=== PATIENT | male | born 1970 | race African-American/Black ===

== ENCOUNTER 2018-11-27 15:32 | Inpatient (IN) | payer MEDICAID ==
[~2018-11-27] VITALS: Ht 172.7 cm; Wt 80.3 kg
[2018-11-27 16:24] LABS: CHLORIDE 107 mEq/L (98-107)
[2018-11-27 16:24] LABS: BG BASE EXCESS -3.1 mmol/L (-2.0-2.0); BG CARBOXYHEMOGLOBIN 1.4 % (0.5-1.5); BG DEOXYHEMOGLOBIN 5.5 % (0.0-5.0); BG FRACTION INSPIRED OXYGEN 21; BG HCO3 ACT 19.7 mmol/L (22.0-26.0); BG METHEMOGLOBIN 0.1 % (0.0-1.5); BG OXYGEN SATURATION 94.4 % (92.0-98.5); BG PCO2 29.4 mmHg (35.0-45.0); BG PH 7.443 (7.350-7.450); BG PO2 68.9 mmHg (75.0-100.0); BG SAMPLE SITE RIGHT RADIAL; BG TOTAL HEMOGLOBIN 14.3 g/dL (12.0-18.0); BG VENT MODE ROOM AIR
[2018-11-27] MEDS ORDERED: SODIUM CHLORIDE 0.9% 1,000 ML IV ONE (16:26)
[2018-11-27 16:27] LABS: BASOPHILS % 0.3 % (0.0-2.0); EOSINOPHILS % 0.1 % (0.0-5.0); HEMATOCRIT. 41.2 % (42.0-52.0); HEMOGLOBIN. 14.1 g/dL (14.0-18.0); LYMPHOCYTES % 8.7 % (20.0-50.0); MEAN CORPUSCULAR HEMOGLOBIN 31.1 pg (28.0-32.0); MEAN CORPUSCULAR VOLUME 90.9 fL (80.0-94.0); NEUTROPHILS % 82.9 % (40.0-76.0); PLATELET 120 x1000/uL (130-400); RED BLOOD CELL COUNT 4.54 mill/uL (4.7-6.1); RED CELL DISTRIBUTION WIDTH 13.6 % (11.6-14.6)
[2018-11-27 16:37] LABS: D-DIMER 13.84 mg/L FEU (<0.50); INR 1.1; PARTIAL THROMBOPLASTIN TIME 27.8 sec (23.4-31.0); PROTHROMBIN TIME 11.1 sec (9.6-11.0)
[2018-11-27 17:15] LABS: ETHANOL BLOOD < 10 mg/dL
[2018-11-27] MEDS ORDERED: IOHEXOL-350 100 ML BOTTLE ONE (17:28)
[2018-11-27 17:30] LABS: CREATINE KINASE 93 IU/L (39-308)
[2018-11-27] MEDS ORDERED: ENOXAPARIN 80MG/0.8ML SYR SUBCUT ONE (17:45)
[2018-11-27] MEDS ORDERED: HYDRALAZINE 20MG/ML VIAL IV ONE (18:15)
[2018-11-27 20:21] LABS: CLARITY URINE CLEAR (CLEAR); COLOR URINE YELLOW (YELLOW); KETONES URINE 1+ (NEGATIVE); LEUKOCYTE ESTERASE URINE NEGATIVE (NEGATIVE); NITRITE URINE NEGATIVE (NEGATIVE); OCCULT BLOOD URINE NEGATIVE (NEGATIVE); PROTEIN URINE NEGATIVE (NEGATIVE); SPECIFIC GRAVITY URINE 1.067 (1.005-1.030)
[2018-11-27 20:33] LABS: *AMPHETAMINES SCREEN URINE NEGATIVE (NEGATIVE); *BARBITURATES SCREEN URINE NEGATIVE (NEGATIVE); *BENZODIAZEPINES SCREEN URINE NEGATIVE (NEGATIVE); *COCAINE SCREEN URINE NEGATIVE (NEGATIVE)
[2018-11-27 20:34] LABS: CANNABINOID URINE SCREEN NEGATIVE (NEGATIVE); METHADONE URINE SCREEN NEGATIVE (NEGATIVE); OPIATES URINE SCREEN NEGATIVE (NEGATIVE); PHENCYCLIDINE URINE SCREEN NEGATIVE (NEGATIVE)
[2018-11-27] MEDS ORDERED: IPRATROPIUM/ALBUTEROL 0.5-3(2.5)MG/3ML NEB INH PRN (21:00)
[2018-11-27] MEDS ORDERED: DEXTROSE 50% WATER 50ML SYRINGE IV PRN (21:00)
[2018-11-27] MEDS ORDERED: HYDROCODONE/ACETAMINOPHEN 10/325MG TABLET PO PRN (21:00)
[2018-11-27] MEDS ORDERED: ONDANSETRON HCL 4MG/2ML INJ IV PRN (21:00)
[2018-11-27] MEDS ORDERED: CLONIDINE 0.1MG TABLET PO PRN (21:00)
[2018-11-27] MEDS ORDERED: MORPHINE SULFATE 2 MG/ML CPJ (NOT FOR IM USE) IV PRN (21:00)
[2018-11-27] MEDS ORDERED: GUAIFENESIN 200MG/10ML SUGAR FREE UDC PO PRN (21:00)
[2018-11-27] MEDS ORDERED: DOCUSATE SODIUM 100MG CAPSULE PO PRN (21:00)
[2018-11-27] MEDS ORDERED: LORAZEPAM 2MG/ML CPJ IV PRN (21:00)
[2018-11-27] MEDS ORDERED: MAGNESIUM/ALUMINUM HYDROXIDE/SIMETHICONE 30ML UDC PO PRN (21:00)
[2018-11-27] MEDS ORDERED: HYDRALAZINE 20MG/ML VIAL IV PRN (21:00)
[2018-11-27] MEDS ORDERED: ACETAMINOPHEN 325MG TABLET PO PRN (21:00)
[2018-11-27] MEDS ORDERED: NA PHOS,M-B/NA PHOS,DI-BA ENEMA 118ML PR PRN (21:00)
[2018-11-27] MEDS ORDERED: DIPHENHYDRAMINE 50MG/ML VIAL IV PRN (21:00)
[2018-11-27 22:36] VITALS: BP 127/81
[2018-11-27 22:44] VITALS: BP 127/81
[2018-11-28] VITALS (21 sets, daily range): BP systolic 110–140; BP diastolic 62–81
[2018-11-28 00:53] LABS: CREATINE KINASE 58 IU/L (39-308)
[2018-11-28 00:54] LABS: CREATINE KINASE MB FRACTION < 1.0 ng/mL (0.5-3.6)
[2018-11-28] MEDS: ENOXAPARIN 80MG/0.8ML SYR SUBCUT SCH ×2 (06:06→17:36)
[2018-11-28] MEDS: SODIUM CHLORIDE 0.9% INJ 3ML FLUSH IVF SCH ×3 (06:07→22:46)
[2018-11-28] MEDS: BLOOD SUGAR DIAGNOSTIC STRIP TEST SCH ×4 (06:07→21:25)
[2018-11-28 06:31] LABS: BASOPHILS % 0.4 % (0.0-2.0); EOSINOPHILS % 0.7 % (0.0-5.0); HEMATOCRIT. 37.4 % (42.0-52.0); HEMOGLOBIN. 12.5 g/dL (14.0-18.0); LYMPHOCYTES % 23.5 % (20.0-50.0); MEAN CORPUSCULAR HEMOGLOBIN 30.8 pg (28.0-32.0); MEAN CORPUSCULAR VOLUME 91.9 fL (80.0-94.0); MEAN PLATELET VOLUME 9.2 fl (7.4-10.4); MONOCYTES % 9.4 % (2.0-8.0); PLATELET 108 x1000/uL (130-400); RED BLOOD CELL COUNT 4.07 mill/uL (4.7-6.1); RED CELL DISTRIBUTION WIDTH 14.1 % (11.6-14.6)
[2018-11-28 06:33] LABS: CHLORIDE 111 mEq/L (98-107)
[2018-11-28 06:43] LABS: LDL CHOLESTEROL 46 mg/dL (5-100)
[2018-11-28 06:44] LABS: HDL CHOLESTEROL 42 mg/dL (40-59)
[2018-11-28 06:45] LABS: CREATINE KINASE 50 IU/L (39-308)
[2018-11-28 06:49] LABS: CREATINE KINASE MB FRACTION < 1.0 ng/mL (0.5-3.6)
[2018-11-28] MEDS ORDERED: ASPIRIN 81MG EC TABLET PO SCH (09:00)
[2018-11-28] MEDS: INSULIN LISPRO 100 UNITS/ML SUBCUT SCH ×4 (09:08→21:24)
[2018-11-28 09:40] LABS: T4 FREE 1.22 ng/dL (0.76-1.46)
[2018-11-28 12:33] LABS: INR 1.1; PARTIAL THROMBOPLASTIN TIME 36.8 sec (23.4-31.0); PROTHROMBIN TIME 11.5 sec (9.6-11.0)
[2018-11-28 12:52] LABS: D-DIMER 2.9 mg/L FEU (<0.50)
[2018-11-28] MEDS: LISINOPRIL 5MG TABLET PO SCH (13:35)
[2018-11-28] MEDS: HALOPERIDOL 5MG TABLET PO SCH ×2 (13:35→21:24)
[2018-11-28] MEDS ORDERED: INSU100I28 SQ (17:06)
[2018-11-28] MEDS ORDERED: BENZ1TAB7 MT (17:10)
[2018-11-28] MEDS ORDERED: HAL5 MT ×2 (17:15→17:16)
[2018-11-28 17:16] LABS: CREATINE KINASE 52 IU/L (39-308)
[2018-11-28] MEDS ORDERED: LISI-186 MT (17:17)
[2018-11-28 17:18] LABS: CREATINE KINASE MB FRACTION < 1.0 ng/mL (0.5-3.6)
[2018-11-28] MEDS: BENZTROPINE MESYLATE 2MG TABLET PO SCH (21:00)
[2018-11-28 23:29] LABS: CREATINE KINASE 43 IU/L (39-308)
[2018-11-28 23:30] LABS: CREATINE KINASE MB FRACTION < 1.0 ng/mL (0.5-3.6)
[2018-11-29] VITALS (24 sets, daily range): BP systolic 104–158; BP diastolic 66–130
[2018-11-29] MEDS: ENOXAPARIN 80MG/0.8ML SYR SUBCUT SCH (05:26)
[2018-11-29] MEDS: SODIUM CHLORIDE 0.9% INJ 3ML FLUSH IVF SCH ×3 (05:27→21:24)
[2018-11-29 05:53] LABS: CHLORIDE 108 mEq/L (98-107)
[2018-11-29 06:02] LABS: BASOPHILS % 0.4 % (0.0-2.0); CREATINE KINASE 38 IU/L (39-308); EOSINOPHILS % 1.6 % (0.0-5.0); HEMATOCRIT. 37.1 % (42.0-52.0); HEMOGLOBIN. 12.5 g/dL (14.0-18.0); LYMPHOCYTES % 29.6 % (20.0-50.0); MEAN CORPUSCULAR HEMOGLOBIN 30.8 pg (28.0-32.0); MEAN CORPUSCULAR VOLUME 91.5 fL (80.0-94.0); MEAN PLATELET VOLUME 9.1 fl (7.4-10.4); MONOCYTES % 10.2 % (2.0-8.0); NEUTROPHILS % 58.2 % (40.0-76.0); PLATELET 121 x1000/uL (130-400); RED BLOOD CELL COUNT 4.06 mill/uL (4.7-6.1); RED CELL DISTRIBUTION WIDTH 13.8 % (11.6-14.6)
[2018-11-29 06:04] LABS: CREATINE KINASE MB FRACTION < 1.0 ng/mL (0.5-3.6)
[2018-11-29] MEDS: BLOOD SUGAR DIAGNOSTIC STRIP TEST SCH ×4 (06:51→21:24)
[2018-11-29] MEDS: INSULIN LISPRO 100 UNITS/ML SUBCUT SCH ×4 (07:44→21:24)
[2018-11-29] MEDS: LISINOPRIL 5MG TABLET PO SCH (07:46)
[2018-11-29] MEDS: HALOPERIDOL 5MG TABLET PO SCH ×2 (07:46→21:23)
[2018-11-29] MEDS: APIXABAN 5 MG TABLET PO SCH (18:12)
[2018-11-29] MEDS: BENZTROPINE MESYLATE 2MG TABLET PO SCH (21:00)
[2018-11-30] VITALS (10 sets, daily range): BP systolic 110–129; BP diastolic 59–79
[2018-11-30] MEDS: SODIUM CHLORIDE 0.9% INJ 3ML FLUSH IVF SCH ×2 (06:39→14:00)
[2018-11-30] MEDS: BLOOD SUGAR DIAGNOSTIC STRIP TEST SCH ×2 (06:39→11:50)
[2018-11-30 07:19] LABS: BASOPHILS % 0.5 % (0.0-2.0); CHLORIDE 106 mEq/L (98-107); EOSINOPHILS % 2.6 % (0.0-5.0); HEMATOCRIT. 38.5 % (42.0-52.0); HEMOGLOBIN. 12.9 g/dL (14.0-18.0); LYMPHOCYTES % 33.8 % (20.0-50.0); MEAN CORPUSCULAR HEMOGLOBIN 30.6 pg (28.0-32.0); MEAN CORPUSCULAR VOLUME 91.6 fL (80.0-94.0); MEAN PLATELET VOLUME 8.9 fl (7.4-10.4); MONOCYTES % 9.6 % (2.0-8.0); NEUTROPHILS % 53.5 % (40.0-76.0); PLATELET 128 x1000/uL (130-400); RED CELL DISTRIBUTION WIDTH 13.7 % (11.6-14.6)
[2018-11-30] MEDS: INSULIN LISPRO 100 UNITS/ML SUBCUT SCH ×3 (07:20→11:50)
[2018-11-30] MEDS: HALOPERIDOL 5MG TABLET PO SCH (08:06)
[2018-11-30] MEDS: APIXABAN 5 MG TABLET PO SCH (08:06)
[2018-11-30] MEDS: LISINOPRIL 5MG TABLET PO SCH (08:06)
[2018-11-30] MEDS ORDERED: BENZONATATE 100MG CAPSULE PO PRN (14:45)
[2018-12-06] MEDS ORDERED: APIXABAN 5 MG TABLET PO SCH (17:00)
== END 2018-11-30 17:31 | disposition home or self-care (01) | DRG 134 ==
LOC: ER 15:32 → 3WST 18:19 → EDBEDREQ 18:36 → EDBEDREQSVC 18:36 → ENRESERV 21:24 → 3WST 22:27
PROVIDERS: ADMIT Internal Medicine; ATTEND Internal Medicine
DX: I26.99 Other pulmonary embolism without acute cor pulmonale (principal); J96.00 Acute respiratory failure, unspecified whether with hypoxia or hypercapnia; E11.9 Type 2 diabetes mellitus without complications; D68.59 Other primary thrombophilia; D69.6 Thrombocytopenia, unspecified; E78.5 Hyperlipidemia, unspecified; I51.9 Heart disease, unspecified; F20.9 Schizophrenia, unspecified; I10 Essential (primary) hypertension; Z79.01 Long term (current) use of anticoagulants; Z79.84 Long term (current) use of oral hypoglycemic drugs
CPT/HCPCS: 36415; 36600; 71045; 71275; 80048; 80061; 80305; 80320; 81003; 82375; 82550; 82553; 82805; 82962; 83036; 83880; 84439; 84443; 84484; 85379; 85384; 93005; 93306; 93970; 97162; 97166; 99291; J0360; J1630; J1650; J1815; J7030; Q9967; G0480

== ENCOUNTER 2020-08-31 07:53 | Emergency (ER) | payer MEDICAID, OTHER ==
[~2020-08-31] VITALS: Ht 172.7 cm; Wt 87.0 kg
[~2020-08-31 07:53] MED LIST: BENZ1TAB7 MT; HAL5 MT; INSU100I28 SQ; LISI-186 MT
[2020-08-31 07:54] VITALS: BP 132/77
[2020-08-31] MEDS ORDERED: LORAZEPAM 2MG/ML CPJ IV STA (08:16)
[2020-08-31] MEDS ORDERED: SODIUM CHLORIDE 0.9% 1,000 ML IV ONE (08:30)
== END 2020-08-31 13:00 | disposition left against medical advice (07) ==
LOC: ER 07:53
DX: F14.10 Cocaine abuse, uncomplicated (principal); R41.82 Altered mental status, unspecified; E11.9 Type 2 diabetes mellitus without complications; I10 Essential (primary) hypertension; F17.290 Nicotine dependence, other tobacco product, uncomplicated; Z79.899 Other long term (current) drug therapy
CPT/HCPCS: 99283; J7030

== ENCOUNTER 2020-12-31 20:09 | Emergency (ER) | payer OTHER ==
[~2020-12-31] VITALS: Ht 170.2 cm; Wt 78.0 kg
[2020-12-31 21:52] VITALS: BP 148/84
== END 2020-12-31 22:04 | disposition home or self-care (01) ==
LOC: ER 20:09
DX: T40.5X1A Poisoning by cocaine, accidental (unintentional), initial encounter (principal); X58.XXXA Exposure to other specified factors, initial encounter; E11.9 Type 2 diabetes mellitus without complications; I10 Essential (primary) hypertension; Z79.899 Other long term (current) drug therapy
CPT/HCPCS: 99283